=== PATIENT | male | born 1930 | race Caucasian/White ===

== ENCOUNTER 2018-12-23 10:07 | Inpatient (IN) | payer MEDICARE, MEDICAID ==
[~2018-12-23] VITALS: Ht 175.3 cm; Wt 60.5 kg
[~2018-12-23 10:07] MED LIST: LEVE500T19 PO; VALS320T2 PO
[2018-12-23] MEDS ORDERED: DEXTROSE 50% WATER 50ML SYRINGE IV ONE ×2 (10:19→10:30)
[2018-12-23 11:08] LABS: HEMATOCRIT. 41.8 % (42.0-52.0); HEMOGLOBIN. 13.6 g/dL (14.0-18.0); MEAN CORPUSCULAR HEMOGLOBIN 28.4 pg (28.0-32.0); MEAN CORPUSCULAR VOLUME 87.6 fL (80.0-94.0); MEAN PLATELET VOLUME 10.2 fl (7.4-10.4); PLATELET 212 x1000/uL (130-400); RED BLOOD CELL COUNT 4.78 mill/uL (4.7-6.1); RED CELL DISTRIBUTION WIDTH 18.2 % (11.6-14.6)
[2018-12-23 11:16] LABS: CHLORIDE 94 mEq/L (98-107)
[2018-12-23 11:17] LABS: INR 1.1; PROTHROMBIN TIME 10.9 sec (9.6-11.0)
[2018-12-23 11:36] LABS: PLATELET ESTIMATE NORMAL
[2018-12-23 13:03] LABS: CLARITY URINE CLEAR (CLEAR); COLOR URINE YELLOW (YELLOW); KETONES URINE NEGATIVE (NEGATIVE); LEUKOCYTE ESTERASE URINE NEGATIVE (NEGATIVE); NITRITE URINE NEGATIVE (NEGATIVE); OCCULT BLOOD URINE NEGATIVE (NEGATIVE); PH URINE 5.5 (4.5-8.0); PROTEIN URINE 2+ (NEGATIVE); SPECIFIC GRAVITY URINE 1.015 (1.005-1.030)
[2018-12-23] MEDS ORDERED: SODIUM CHLORIDE 0.9% 1,000 ML IV ONE (14:00)
[2018-12-23] MEDS ORDERED: DEXT 5%/0.9% NACL 1,000 ML IV SCH (16:15)
[2018-12-23 16:41] VITALS: BP 164/60
[2018-12-23] MEDS ORDERED: DEXTROSE 50% WATER 50ML SYRINGE IV PRN (17:15)
[2018-12-23 17:30] VITALS: BP 164/60
[2018-12-23] MEDS: BLOOD SUGAR DIAGNOSTIC STRIP TEST SCH ×2 (18:07→20:01)
[2018-12-23] MEDS ORDERED: INFLUENZA VIRUS VACCINE(AFLURIA) 0.5ML SYR IM ONE (18:15)
[2018-12-23] MEDS ORDERED: PNEUMOCOCCAL 23-VAL P-SAC VAC 0.5 ML IM ONE (18:15)
[2018-12-23] MEDS ORDERED: IPRATROPIUM/ALBUTEROL 0.5-3(2.5)MG/3ML NEB HHN PRN (19:15)
[2018-12-23] MEDS ORDERED: ONDANSETRON HCL 4MG/2ML INJ IV PRN (19:15)
[2018-12-23] MEDS ORDERED: MAGNESIUM/ALUMINUM HYDROXIDE/SIMETHICONE 30ML UDC PO PRN (19:15)
[2018-12-23] MEDS ORDERED: DIPHENHYDRAMINE 50MG/ML VIAL IV PRN (19:15)
[2018-12-23] MEDS ORDERED: CLONIDINE 0.1MG TABLET PO PRN (19:15)
[2018-12-23] MEDS ORDERED: NA PHOS,M-B/NA PHOS,DI-BA ENEMA 118ML PR PRN (19:15)
[2018-12-23] MEDS ORDERED: DOCUSATE SODIUM 100MG CAPSULE PO PRN (19:15)
[2018-12-23] MEDS ORDERED: ACETAMINOPHEN 650MG SUPP PR PRN (19:15)
[2018-12-23] MEDS ORDERED: ACETAMINOPHEN 325MG TABLET PO PRN (19:15)
[2018-12-23] MEDS ORDERED: MEDICATION NOT ON FORMULARY EA (Valsartan (Diovan) 1 TAB) PO SCH (19:15)
[2018-12-23] MEDS ORDERED: ACETAMINOPHEN 650MG/20.3ML UDC GT PRN (19:15)
[2018-12-23] MEDS ORDERED: GUAIFENESIN 200MG/10ML SUGAR FREE UDC PO PRN (19:15)
[2018-12-23 20:00] VITALS: BP 141/82
[2018-12-23] MEDS ORDERED: ENOXAPARIN 40MG/0.4ML SYR SUBCUT SCH (20:00)
[2018-12-23] MEDS: LOSARTAN POTASSIUM 100 MG TABLET PO SCH (20:50)
[2018-12-23] MEDS ORDERED: LEVETIRACETAM 250MG TABLET PO SCH (21:00)
[2018-12-23] MEDS: SODIUM CHLORIDE 0.9% INJ 3ML FLUSH IVF SCH (22:00)
[2018-12-23] MEDS ORDERED: LORAZEPAM 2MG/ML CPJ IV PRN (22:45)
[2018-12-23] MEDS: LORAZEPAM 2MG/ML CPJ IV PRN (23:21)
[2018-12-23 23:26] LABS: *AMPHETAMINES SCREEN URINE NEGATIVE (NEGATIVE); *BARBITURATES SCREEN URINE NEGATIVE (NEGATIVE); *BENZODIAZEPINES SCREEN URINE NEGATIVE (NEGATIVE); *COCAINE SCREEN URINE NEGATIVE (NEGATIVE); METHADONE URINE SCREEN NEGATIVE (NEGATIVE)
[2018-12-23 23:27] LABS: CANNABINOID URINE SCREEN NEGATIVE (NEGATIVE); OPIATES URINE SCREEN NEGATIVE (NEGATIVE); PHENCYCLIDINE URINE SCREEN NEGATIVE (NEGATIVE)
[2018-12-23] MEDS ORDERED: LEVETIRACETAM 500 MG in SODIUM CHLORIDE 0.9% 100 ML IV SCH (23:30)
[2018-12-23 23:45] VITALS: BP 178/72
[2018-12-24] VITALS (75 sets, daily range): BP systolic 69–207; BP diastolic 28–111
[2018-12-24] MEDS: DEXTROSE 50% WATER 50ML SYRINGE IV PRN ×2 (04:40→13:43)
[2018-12-24] MEDS: LORAZEPAM 2MG/ML CPJ IV PRN (06:11)
[2018-12-24] MEDS ORDERED: LORAZEPAM 2MG/ML CPJ IV ONE (06:15)
[2018-12-24] MEDS ORDERED: DEXT 10% WATER 1,000 ML IV SCH (06:30)
[2018-12-24 07:15] LABS: HEMATOCRIT. 39.4 % (42.0-52.0); HEMOGLOBIN. 12.8 g/dL (14.0-18.0); MEAN CORPUSCULAR HEMOGLOBIN 28.5 pg (28.0-32.0); MEAN CORPUSCULAR VOLUME 87.6 fL (80.0-94.0); PLATELET 133 x1000/uL (130-400); RED CELL DISTRIBUTION WIDTH 18.6 % (11.6-14.6)
[2018-12-24 07:31] LABS: BG BASE EXCESS -2.3 mmol/L (-2.0-2.0); BG CARBOXYHEMOGLOBIN 0.7 % (0.5-1.5); BG DEOXYHEMOGLOBIN 2.6 % (0.0-5.0); BG HCO3 ACT 24.8 mmol/L (22.0-26.0); BG METHEMOGLOBIN 0.7 % (0.0-1.5); BG OXYGEN SATURATION 97.4 % (92.0-98.5); BG PCO2 52.5 mmHg (35.0-45.0); BG PH 7.293 (7.350-7.450); BG PO2 105.7 mmHg (75.0-100.0); BG SAMPLE SITE RIGHT RADIAL; BG TOTAL HEMOGLOBIN 13.5 g/dL (12.0-18.0); BG VENT MODE MASK - SIMPLE
[2018-12-24] MEDS: BLOOD SUGAR DIAGNOSTIC STRIP TEST SCH ×4 (07:58→21:00)
[2018-12-24] MEDS ORDERED: PROPOFOL 10MG/ML 100ML 100 ML IV PRN (08:15)
[2018-12-24 08:31] LABS: CHLORIDE 101 mEq/L (98-107)
[2018-12-24 08:38] LABS: BG BASE EXCESS -0.8 mmol/L (-2.0-2.0); BG CARBOXYHEMOGLOBIN 0.4 % (0.5-1.5); BG DEOXYHEMOGLOBIN 0.3 % (0.0-5.0); BG HCO3 ACT 24.4 mmol/L (22.0-26.0); BG METHEMOGLOBIN 0.6 % (0.0-1.5); BG OXYGEN SATURATION 99.7 % (92.0-98.5); BG OXYHEMOGLOBIN 98.7 % (94.0-97.0); BG PCO2 42.2 mmHg (35.0-45.0); BG PO2 495.4 mmHg (75.0-100.0); BG SAMPLE SITE RIGHT RADIAL; BG TIDAL VOLUME(mL) 450 mL; BG TOTAL HEMOGLOBIN 13.8 g/dL (12.0-18.0); BG VENT MODE VENT - A/C; BG VENT RATE 12 set
[2018-12-24 08:40] LABS: PHOSPHORUS 2.7 mg/dL (2.5-4.9)
[2018-12-24 08:41] LABS: LDL CHOLESTEROL 199 mg/dL (5-100)
[2018-12-24 08:43] LABS: HDL CHOLESTEROL 34 mg/dL (40-59)
[2018-12-24] MEDS: LEVETIRACETAM 250 MG in SODIUM CHLORIDE 0.9% 100 ML IV SCH ×2 (09:48→21:15)
[2018-12-24] MEDS: LOSARTAN POTASSIUM 100 MG TABLET PO SCH (09:48)
[2018-12-24] MEDS: DEXT 10% WATER 1,000 ML IV SCH ×2 (10:00→19:50)
[2018-12-24 10:01] LABS: PLATELET ESTIMATE NORMAL
[2018-12-24] MEDS ORDERED: PHENYTOIN SODIUM 500 MG in SODIUM CHLORIDE 0.9% 50 ML IV NR (10:30)
[2018-12-24 10:54] LABS: CREATINE KINASE 22 IU/L (39-308)
[2018-12-24] MEDS: MIDAZOLAM HCL 50 MG in DEXTROSE 5% WATER 40 ML IV PRN ×2 (11:39→22:54)
[2018-12-24] MEDS: CEFEPIME 500 MG in DEXTROSE 5% WATER 50 ML IV SCH (11:44)
[2018-12-24] MEDS ORDERED: ALBUTEROL (0.083%) 2.5MG/3ML NEB HHN SCH (12:00)
[2018-12-24] MEDS: METRONIDAZOLE 500 MG PREMIX 100 ML IV SCH ×2 (12:03→19:35)
[2018-12-24] MEDS ORDERED: NOREPINEPHRINE BITARTRATE 1MG/ML 4ML IV ONE (13:50)
[2018-12-24] MEDS: NOREPINEPHRINE 8 MG in DEXT 5% WATER 242 ML IV PRN (14:00)
[2018-12-24] MEDS ORDERED: ALBUMIN HUMAN 25GM/100ML (25%) IV NR (14:00)
[2018-12-24] MEDS ORDERED: FOLIC ACID 1 MG, THIAMINE HCL 100 MG, MVI, ADULT NO.1 10 ML in DEXTROSE 5% WATER 1,000 ML IV SCH ×4 (14:00)
[2018-12-24] MEDS ORDERED: LIDOCAINE HCL 1% 20ML VIAL (Pyxis) INJ ONE (14:12)
[2018-12-24] MEDS ORDERED: SODIUM BICARBONATE 4% (2.4MEQ) 5ML VIAL IV ONE (14:12)
[2018-12-24] MEDS: IPRATROPIUM/ALBUTEROL 0.5-3(2.5)MG/3ML NEB HHN SCH ×2 (14:13→20:50)
[2018-12-24 17:14] LABS: HEMATOCRIT. 35.5 % (42.0-52.0); HEMOGLOBIN. 11.1 g/dL (14.0-18.0); MEAN CORPUSCULAR HEMOGLOBIN 27.5 pg (28.0-32.0); MEAN CORPUSCULAR VOLUME 88.3 fL (80.0-94.0); MEAN PLATELET VOLUME 11.2 fl (7.4-10.4); PLATELET 167 x1000/uL (130-400); RED BLOOD CELL COUNT 4.02 mill/uL (4.7-6.1); RED CELL DISTRIBUTION WIDTH 18.8 % (11.6-14.6)
[2018-12-24 19:51] LABS: PLATELET ESTIMATE NORMAL
[2018-12-24] MEDS ORDERED: PHENYTOIN SODIUM 300 MG in SODIUM CHLORIDE 0.9% 50 ML IV SCH (21:00)
[2018-12-24] MEDS: PHENYTOIN 100 MG/4 ML UDC NG SCH (21:15)
[2018-12-24] MEDS: TAMSULOSIN HCL 0.4MG SR CAPSULE PO SCH (23:58)
[2018-12-25] VITALS (84 sets, daily range): BP systolic 83–132; BP diastolic 35–86
[2018-12-25] MEDS: IPRATROPIUM/ALBUTEROL 0.5-3(2.5)MG/3ML NEB HHN SCH ×4 (02:01→19:53)
[2018-12-25] MEDS: METRONIDAZOLE 500 MG PREMIX 100 ML IV SCH ×3 (05:48→20:08)
[2018-12-25 05:55] LABS: HEMATOCRIT. 36.4 % (42.0-52.0); HEMOGLOBIN. 11.9 g/dL (14.0-18.0); MEAN CORPUSCULAR HEMOGLOBIN 28.4 pg (28.0-32.0); MEAN PLATELET VOLUME 9.2 fl (7.4-10.4); PLATELET 107 x1000/uL (130-400); RED BLOOD CELL COUNT 4.18 mill/uL (4.7-6.1); RED CELL DISTRIBUTION WIDTH 18.5 % (11.6-14.6)
[2018-12-25 06:18] LABS: PHOSPHORUS 2.2 mg/dL (2.5-4.9)
[2018-12-25] MEDS: DEXT 10% WATER 1,000 ML IV SCH (06:34)
[2018-12-25] MEDS: PHENYTOIN 100 MG/4 ML UDC NG SCH ×3 (07:46→21:41)
[2018-12-25] MEDS: BLOOD SUGAR DIAGNOSTIC STRIP TEST SCH ×4 (07:48→21:00)
[2018-12-25 08:10] LABS: PLATELET ESTIMATE DECREASED
[2018-12-25 08:34] LABS: BG BASE EXCESS -2.7 mmol/L (-2.0-2.0); BG CARBOXYHEMOGLOBIN 0.5 % (0.5-1.5); BG DEOXYHEMOGLOBIN 0.7 % (0.0-5.0); BG FRACTION INSPIRED OXYGEN 50; BG HCO3 ACT 21.5 mmol/L (22.0-26.0); BG METHEMOGLOBIN 0.4 % (0.0-1.5); BG OXYGEN SATURATION 99.3 % (92.0-98.5); BG OXYHEMOGLOBIN 98.4 % (94.0-97.0); BG PCO2 35.4 mmHg (35.0-45.0); BG PH 7.402 (7.350-7.450); BG PO2 160.6 mmHg (75.0-100.0); BG SAMPLE SITE RIGHT BRACHIAL; BG TIDAL VOLUME(mL) 450 mL; BG TOTAL HEMOGLOBIN 12.5 g/dL (12.0-18.0); BG VENT MODE VENT - A/C; BG VENT RATE 12 set
[2018-12-25] MEDS: LOSARTAN POTASSIUM 100 MG TABLET PO SCH (09:04)
[2018-12-25] MEDS: LEVETIRACETAM 250 MG in SODIUM CHLORIDE 0.9% 100 ML IV SCH ×2 (09:04→21:00)
[2018-12-25] MEDS: CEFEPIME 500 MG in DEXTROSE 5% WATER 50 ML IV SCH (09:53)
[2018-12-25] MEDS: NOREPINEPHRINE 8 MG in DEXT 5% WATER 242 ML IV PRN (11:48)
[2018-12-25] MEDS ORDERED: DEXT 10%/0.9% NACL 1,000 ML IV SCH (12:45)
[2018-12-25] MEDS: SODIUM CHLORIDE 23.4% 154 MEQ in DEXT 10% WATER 1,000 ML IV SCH (15:51)
[2018-12-25] MEDS ORDERED: POTASSIUM PHOS,M-BASIC-D-BASIC 20 MMOL in DEXTROSE 5% WATER 250 ML IV NR (16:00)
[2018-12-25] MEDS ORDERED: MAGNESIUM 2 G PREMIX 50 ML IV NR (16:00)
[2018-12-25] MEDS: TAMSULOSIN HCL 0.4MG SR CAPSULE PO SCH (21:41)
[2018-12-25 23:45] LABS: CLARITY URINE TURBID (CLEAR); COLOR URINE ORANGE (YELLOW); KETONES URINE NEGATIVE (NEGATIVE); LEUKOCYTE ESTERASE URINE 1+ (NEGATIVE); NITRITE URINE NEGATIVE (NEGATIVE); OCCULT BLOOD URINE 3+ (NEGATIVE); PROTEIN URINE 2+ (NEGATIVE); SPECIFIC GRAVITY URINE 1.013 (1.005-1.030); UROBILINOGEN URINE 0.2 E.U./dL (0.2-1.0)
[2018-12-26] VITALS (83 sets, daily range): BP systolic 89–134; BP diastolic 36–65
[2018-12-26 00:54] LABS: SODIUM URINE RANDOM 18 mEq/L
[2018-12-26] MEDS: IPRATROPIUM/ALBUTEROL 0.5-3(2.5)MG/3ML NEB HHN SCH ×4 (01:58→20:51)
[2018-12-26] MEDS: MIDAZOLAM HCL 50 MG in DEXTROSE 5% WATER 40 ML IV PRN (02:47)
[2018-12-26] MEDS: METRONIDAZOLE 500 MG PREMIX 100 ML IV SCH ×3 (04:00→21:16)
[2018-12-26] MEDS: PHENYTOIN 100 MG/4 ML UDC NG SCH ×3 (05:31→21:17)
[2018-12-26] MEDS: SODIUM CHLORIDE 23.4% 154 MEQ in DEXT 10% WATER 1,000 ML IV SCH (05:31)
[2018-12-26 07:10] LABS: PHOSPHORUS 2.6 mg/dL (2.5-4.9)
[2018-12-26 07:16] LABS: HEMOGLOBIN. 11.5 g/dL (14.0-18.0); MEAN CORPUSCULAR HEMOGLOBIN 28.2 pg (28.0-32.0); MEAN CORPUSCULAR VOLUME 86.1 fL (80.0-94.0); MEAN PLATELET VOLUME 10.1 fl (7.4-10.4); PLATELET 99 x1000/uL (130-400); RED BLOOD CELL COUNT 4.06 mill/uL (4.7-6.1); RED CELL DISTRIBUTION WIDTH 18.4 % (11.6-14.6)
[2018-12-26] MEDS: BLOOD SUGAR DIAGNOSTIC STRIP TEST SCH ×3 (07:32→17:44)
[2018-12-26 08:43] LABS: BG BASE EXCESS -6.9 mmol/L (-2.0-2.0); BG CARBOXYHEMOGLOBIN 0.5 % (0.5-1.5); BG DEOXYHEMOGLOBIN 3.4 % (0.0-5.0); BG FRACTION INSPIRED OXYGEN 30; BG HCO3 ACT 17.3 mmol/L (22.0-26.0); BG METHEMOGLOBIN 0.2 % (0.0-1.5); BG OXYGEN SATURATION 96.6 % (92.0-98.5); BG OXYHEMOGLOBIN 95.9 % (94.0-97.0); BG PCO2 30.9 mmHg (35.0-45.0); BG PH 7.366 (7.350-7.450); BG PO2 86.9 mmHg (75.0-100.0); BG SAMPLE SITE RIGHT BRACHIAL; BG TIDAL VOLUME(mL) 450 mL; BG TOTAL HEMOGLOBIN 12.6 g/dL (12.0-18.0); BG VENT MODE VENT - A/C; BG VENT RATE 12 set
[2018-12-26 08:52] LABS: PLATELET ESTIMATE DECREASED
[2018-12-26] MEDS: LEVETIRACETAM 250 MG in SODIUM CHLORIDE 0.9% 100 ML IV SCH (08:55)
[2018-12-26] MEDS: LOSARTAN POTASSIUM 100 MG TABLET PO SCH (08:55)
[2018-12-26] MEDS: DEXT 5%/0.9% NACL 1,000 ML IV SCH ×2 (08:56→21:17)
[2018-12-26] MEDS: CEFEPIME 500 MG in DEXTROSE 5% WATER 50 ML IV SCH (10:18)
[2018-12-26] MEDS ORDERED: BLOOD SUGAR DIAGNOSTIC STRIP TEST SCH (20:00)
[2018-12-26] MEDS: LEVETIRACETAM 1,000 MG in SODIUM CHLORIDE 0.9% 100 ML IV SCH (21:16)
[2018-12-26] MEDS: TAMSULOSIN HCL 0.4MG SR CAPSULE PO SCH (21:17)
[2018-12-26 22:36] LABS: T4 FREE 1.36 ng/dL (0.76-1.46)
[2018-12-27] VITALS (39 sets, daily range): BP systolic 91–123; BP diastolic 37–90
[2018-12-27] MEDS: IPRATROPIUM/ALBUTEROL 0.5-3(2.5)MG/3ML NEB HHN SCH ×4 (02:28→20:27)
[2018-12-27] MEDS: METRONIDAZOLE 500 MG PREMIX 100 ML IV SCH ×3 (03:25→20:36)
[2018-12-27] MEDS: MIDAZOLAM HCL 50 MG in DEXTROSE 5% WATER 40 ML IV PRN (05:23)
[2018-12-27] MEDS: PHENYTOIN 100 MG/4 ML UDC NG SCH ×3 (05:23→21:49)
[2018-12-27 05:49] LABS: HEMATOCRIT. 34.9 % (42.0-52.0); HEMOGLOBIN. 11.3 g/dL (14.0-18.0); MEAN CORPUSCULAR HEMOGLOBIN 27.9 pg (28.0-32.0); RED BLOOD CELL COUNT 4.06 mill/uL (4.7-6.1); RED CELL DISTRIBUTION WIDTH 18.6 % (11.6-14.6)
[2018-12-27 06:01] LABS: CHLORIDE 101 mEq/L (98-107)
[2018-12-27 06:14] LABS: PHOSPHORUS 2.5 mg/dL (2.5-4.9)
[2018-12-27 08:07] LABS: PLATELET ESTIMATE SLIGHTLY DECREASED
[2018-12-27 08:09] LABS: MEAN PLATELET VOLUME 10.4 fl (7.4-10.4); PLATELET 108 x1000/uL (130-400)
[2018-12-27] MEDS: LEVETIRACETAM 1,000 MG in SODIUM CHLORIDE 0.9% 100 ML IV SCH ×2 (08:34→21:48)
[2018-12-27] MEDS: LOSARTAN POTASSIUM 100 MG TABLET PO SCH (08:34)
[2018-12-27 09:08] LABS: BG BASE EXCESS -4.2 mmol/L (-2.0-2.0); BG CARBOXYHEMOGLOBIN 0.5 % (0.5-1.5); BG DEOXYHEMOGLOBIN 3.1 % (0.0-5.0); BG FRACTION INSPIRED OXYGEN 30; BG HCO3 ACT 20.5 mmol/L (22.0-26.0); BG METHEMOGLOBIN 0.3 % (0.0-1.5); BG OXYGEN SATURATION 96.9 % (92.0-98.5); BG OXYHEMOGLOBIN 96.1 % (94.0-97.0); BG PCO2 36.5 mmHg (35.0-45.0); BG PH 7.368 (7.350-7.450); BG SAMPLE SITE LEFT RADIAL; BG TIDAL VOLUME(mL) 450 mL; BG TOTAL HEMOGLOBIN 12.7 g/dL (12.0-18.0); BG VENT MODE VENT - A/C; BG VENT RATE 12 set
[2018-12-27] MEDS ORDERED: LORAZEPAM 2MG/ML CPJ IV PRN (10:30)
[2018-12-27] MEDS ORDERED: MORPHINE SULFATE 2 MG/ML CPJ (NOT FOR IM USE) IV PRN (10:30)
[2018-12-27] MEDS: CEFEPIME 500 MG in DEXTROSE 5% WATER 50 ML IV SCH (10:38)
[2018-12-27] MEDS: PANTOPRAZOLE SODIUM 40 MG/VIAL IV SCH (11:44)
[2018-12-27] MEDS ORDERED: PHENYTOIN SODIUM 800 MG in SODIUM CHLORIDE 0.9% 100 ML IV NR (14:00)
[2018-12-27] MEDS ORDERED: DEXTROSE 50% WATER 50ML SYRINGE IV PRN (20:30)
[2018-12-27] MEDS: SODIUM CHLORIDE 0.9% INJ 3ML FLUSH IVF SCH (20:35)
[2018-12-27] MEDS: TAMSULOSIN HCL 0.4MG SR CAPSULE PO SCH (20:36)
[2018-12-28] VITALS (34 sets, daily range): BP systolic 100–137; BP diastolic 37–61
[2018-12-28] MEDS: BLOOD SUGAR DIAGNOSTIC STRIP TEST SCH ×4 (00:09→17:04)
[2018-12-28] MEDS: IPRATROPIUM/ALBUTEROL 0.5-3(2.5)MG/3ML NEB HHN SCH ×4 (02:26→20:22)
[2018-12-28] MEDS: METRONIDAZOLE 500 MG PREMIX 100 ML IV SCH ×3 (04:03→20:08)
[2018-12-28 05:30] LABS: HEMATOCRIT. 35.5 % (42.0-52.0); HEMOGLOBIN. 11.6 g/dL (14.0-18.0); MEAN CORPUSCULAR HEMOGLOBIN 28.1 pg (28.0-32.0); MEAN CORPUSCULAR VOLUME 85.9 fL (80.0-94.0); RED BLOOD CELL COUNT 4.13 mill/uL (4.7-6.1); RED CELL DISTRIBUTION WIDTH 18.5 % (11.6-14.6)
[2018-12-28 05:43] LABS: PHOSPHORUS 3.3 mg/dL (2.5-4.9)
[2018-12-28] MEDS: SODIUM CHLORIDE 0.9% INJ 3ML FLUSH IVF SCH ×3 (06:27→22:00)
[2018-12-28] MEDS: PHENYTOIN 100 MG/4 ML UDC NG SCH ×3 (06:37→22:02)
[2018-12-28] MEDS: CITRIC ACID/SODIUM CITRATE SOLN 15ML UDC NG SCH ×3 (08:28→17:59)
[2018-12-28] MEDS: LOSARTAN POTASSIUM 100 MG TABLET PO SCH (08:28)
[2018-12-28] MEDS: PANTOPRAZOLE SODIUM 40 MG/VIAL IV SCH (08:28)
[2018-12-28] MEDS: LEVETIRACETAM 1,000 MG in SODIUM CHLORIDE 0.9% 100 ML IV SCH ×2 (08:28→21:07)
[2018-12-28 09:22] LABS: PLATELET ESTIMATE NORMAL
[2018-12-28 09:23] LABS: MEAN PLATELET VOLUME 11.1 fl (7.4-10.4); PLATELET 145 x1000/uL (130-400)
[2018-12-28] MEDS: CEFEPIME 500 MG in DEXTROSE 5% WATER 50 ML IV SCH (10:33)
[2018-12-28 10:51] LABS: BG BASE EXCESS -6.4 mmol/L (-2.0-2.0); BG CARBOXYHEMOGLOBIN 0.6 % (0.5-1.5); BG DEOXYHEMOGLOBIN 3.3 % (0.0-5.0); BG FRACTION INSPIRED OXYGEN 30; BG HCO3 ACT 18.3 mmol/L (22.0-26.0); BG METHEMOGLOBIN 0.3 % (0.0-1.5); BG OXYGEN SATURATION 96.7 % (92.0-98.5); BG OXYHEMOGLOBIN 95.8 % (94.0-97.0); BG PCO2 33.8 mmHg (35.0-45.0); BG PH 7.351 (7.350-7.450); BG PO2 88.4 mmHg (75.0-100.0); BG SAMPLE SITE RIGHT RADIAL; BG TOTAL HEMOGLOBIN 13.1 g/dL (12.0-18.0)
[2018-12-28 11:04] LABS: BG PRESSURE SUPPORT PS 8; BG VENT MODE VENT/CPAP
[2018-12-28 11:05] LABS: BG TOTAL RESPIRATORY RATE 20 b/min
[2018-12-28 11:15] LABS: SODIUM URINE RANDOM < 5 mEq/L
[2018-12-28] MEDS: TAMSULOSIN HCL 0.4MG SR CAPSULE PO SCH (21:07)
[2018-12-29] VITALS (44 sets, daily range): BP systolic 111–139; BP diastolic 42–70
[2018-12-29] MEDS: BLOOD SUGAR DIAGNOSTIC STRIP TEST SCH ×4 (00:10→18:00)
[2018-12-29] MEDS: IPRATROPIUM/ALBUTEROL 0.5-3(2.5)MG/3ML NEB HHN SCH ×4 (01:54→20:02)
[2018-12-29] MEDS: METRONIDAZOLE 500 MG PREMIX 100 ML IV SCH ×3 (03:27→19:35)
[2018-12-29] MEDS: SODIUM CHLORIDE 0.9% INJ 3ML FLUSH IVF SCH ×3 (06:35→21:02)
[2018-12-29] MEDS: PHENYTOIN 100 MG/4 ML UDC NG SCH ×3 (06:38→21:05)
[2018-12-29 07:18] LABS: HEMATOCRIT. 36.3 % (42.0-52.0); HEMOGLOBIN. 11.7 g/dL (14.0-18.0); MEAN CORPUSCULAR HEMOGLOBIN 27.9 pg (28.0-32.0); MEAN CORPUSCULAR VOLUME 86.7 fL (80.0-94.0); MEAN PLATELET VOLUME 10.8 fl (7.4-10.4); PLATELET 175 x1000/uL (130-400); RED BLOOD CELL COUNT 4.19 mill/uL (4.7-6.1); RED CELL DISTRIBUTION WIDTH 18.7 % (11.6-14.6)
[2018-12-29 07:25] LABS: PHOSPHORUS 2.9 mg/dL (2.5-4.9)
[2018-12-29 08:14] LABS: PLATELET ESTIMATE NORMAL
[2018-12-29] MEDS: LEVETIRACETAM 1,000 MG in SODIUM CHLORIDE 0.9% 100 ML IV SCH ×2 (08:59→20:54)
[2018-12-29] MEDS: CLOPIDOGREL 75MG TABLET PO SCH (09:00)
[2018-12-29] MEDS: CITRIC ACID/SODIUM CITRATE SOLN 15ML UDC NG SCH ×3 (09:00→19:03)
[2018-12-29] MEDS: LOSARTAN POTASSIUM 100 MG TABLET PO SCH (09:00)
[2018-12-29] MEDS: CEFEPIME 500 MG in DEXTROSE 5% WATER 50 ML IV SCH (09:49)
[2018-12-29] MEDS: TAMSULOSIN HCL 0.4MG SR CAPSULE PO SCH (21:04)
[2018-12-30] VITALS (49 sets, daily range): BP systolic 109–159; BP diastolic 40–100
[2018-12-30] MEDS: BLOOD SUGAR DIAGNOSTIC STRIP TEST SCH ×5 (00:05→23:35)
[2018-12-30] MEDS: IPRATROPIUM/ALBUTEROL 0.5-3(2.5)MG/3ML NEB HHN SCH ×4 (01:46→20:05)
[2018-12-30] MEDS: METRONIDAZOLE 500 MG PREMIX 100 ML IV SCH ×3 (03:25→20:31)
[2018-12-30 05:32] LABS: HEMATOCRIT. 37.1 % (42.0-52.0); HEMOGLOBIN. 12.2 g/dL (14.0-18.0); MEAN CORPUSCULAR HEMOGLOBIN 28.4 pg (28.0-32.0); MEAN CORPUSCULAR VOLUME 86.9 fL (80.0-94.0); RED BLOOD CELL COUNT 4.27 mill/uL (4.7-6.1); RED CELL DISTRIBUTION WIDTH 18.8 % (11.6-14.6)
[2018-12-30 05:43] LABS: PHOSPHORUS 2.5 mg/dL (2.5-4.9)
[2018-12-30] MEDS: SODIUM CHLORIDE 0.9% INJ 3ML FLUSH IVF SCH ×3 (05:49→21:17)
[2018-12-30] MEDS: PHENYTOIN 100 MG/4 ML UDC NG SCH ×3 (06:23→21:42)
[2018-12-30] MEDS: LEVETIRACETAM 1,000 MG in SODIUM CHLORIDE 0.9% 100 ML IV SCH ×2 (09:06→21:42)
[2018-12-30] MEDS: LOSARTAN POTASSIUM 100 MG TABLET PO SCH (09:06)
[2018-12-30] MEDS: CLOPIDOGREL 75MG TABLET PO SCH (09:06)
[2018-12-30] MEDS: CITRIC ACID/SODIUM CITRATE SOLN 15ML UDC NG SCH ×3 (09:06→17:00)
[2018-12-30] MEDS: CEFEPIME 500 MG in DEXTROSE 5% WATER 50 ML IV SCH (11:08)
[2018-12-30 14:21] LABS: PLATELET ESTIMATE NORMAL
[2018-12-30 14:22] LABS: PLATELET 220 x1000/uL (130-400)
[2018-12-30] MEDS: METOCLOPRAMIDE HCL 10MG/2ML VIAL IV SCH ×3 (14:30→23:47)
[2018-12-30] MEDS: PANTOPRAZOLE SODIUM 40 MG/VIAL IV SCH ×2 (15:02→20:31)
[2018-12-30] MEDS: DEXT 5%/0.9% NACL 1,000 ML IV SCH (15:06)
[2018-12-30 17:35] LABS: HEMATOCRIT 37.4 % (42.0-52.0); HEMOGLOBIN 12.2 g/dL (14.0-18.0); MEAN CORPUSCULAR HEMOGLOBIN 28.2 pg (28.0-32.0); MEAN CORPUSCULAR VOLUME 86.1 fL (80.0-94.0); PLATELET 262 x1000/uL (130-400); RED BLOOD CELL COUNT 4.34 mill/uL (4.7-6.1); RED CELL DISTRIBUTION WIDTH 18.5 % (11.6-14.6)
[2018-12-30] MEDS: TAMSULOSIN HCL 0.4MG SR CAPSULE PO SCH (21:42)
[2018-12-30] MEDS: MEROPENEM 500 MG in SODIUM CHLORIDE 0.9% 50 ML IV SCH (23:47)
[2018-12-31] VITALS (50 sets, daily range): BP systolic 87–133; BP diastolic 31–52
[2018-12-31] MEDS: IPRATROPIUM/ALBUTEROL 0.5-3(2.5)MG/3ML NEB HHN SCH ×4 (01:40→20:41)
[2018-12-31 05:15] LABS: HEMATOCRIT. 34.2 % (42.0-52.0); MEAN CORPUSCULAR HEMOGLOBIN 28.2 pg (28.0-32.0); MEAN CORPUSCULAR VOLUME 87.3 fL (80.0-94.0); RED BLOOD CELL COUNT 3.92 mill/uL (4.7-6.1)
[2018-12-31] MEDS: SODIUM CHLORIDE 0.9% INJ 3ML FLUSH IVF SCH ×3 (05:15→22:19)
[2018-12-31] MEDS: METOCLOPRAMIDE HCL 10MG/2ML VIAL IV SCH ×3 (05:29→17:07)
[2018-12-31] MEDS: BLOOD SUGAR DIAGNOSTIC STRIP TEST SCH ×3 (05:29→17:07)
[2018-12-31] MEDS: PHENYTOIN 100 MG/4 ML UDC NG SCH ×3 (05:29→22:22)
[2018-12-31 05:35] LABS: PHOSPHORUS 2.5 mg/dL (2.5-4.9)
[2018-12-31 07:53] LABS: PLATELET ESTIMATE NORMAL
[2018-12-31 07:54] LABS: MEAN PLATELET VOLUME 10.2 fl (7.4-10.4); PLATELET 255 x1000/uL (130-400)
[2018-12-31] MEDS: PANTOPRAZOLE SODIUM 40 MG/VIAL IV SCH ×2 (08:01→21:30)
[2018-12-31] MEDS: LOSARTAN POTASSIUM 100 MG TABLET PO SCH (08:02)
[2018-12-31] MEDS: CLOPIDOGREL 75MG TABLET PO SCH (08:02)
[2018-12-31] MEDS: CITRIC ACID/SODIUM CITRATE SOLN 15ML UDC NG SCH ×3 (08:02→16:52)
[2018-12-31] MEDS: DEXT 5%/0.9% NACL 1,000 ML IV SCH ×2 (08:04→22:35)
[2018-12-31] MEDS: LEVETIRACETAM 1,000 MG in SODIUM CHLORIDE 0.9% 100 ML IV SCH ×2 (09:45→21:30)
[2018-12-31] MEDS: MEROPENEM 500 MG in SODIUM CHLORIDE 0.9% 50 ML IV SCH (12:02)
[2018-12-31] MEDS ORDERED: DOCUSATE SODIUM SUGAR FREE 100MG/10ML UDC NG PRN (17:00)
[2018-12-31] MEDS ORDERED: LACTULOSE 20G/30ML UDC PO NR (17:15)
[2018-12-31] MEDS: TAMSULOSIN HCL 0.4MG SR CAPSULE PO SCH (21:00)
[2019-01-01] VITALS (47 sets, daily range): BP systolic 101–143; BP diastolic 33–67
[2019-01-01] MEDS: MEROPENEM 500 MG in SODIUM CHLORIDE 0.9% 50 ML IV SCH ×2 (00:18→12:30)
[2019-01-01] MEDS: METOCLOPRAMIDE HCL 10MG/2ML VIAL IV SCH ×4 (00:21→18:48)
[2019-01-01] MEDS: IPRATROPIUM/ALBUTEROL 0.5-3(2.5)MG/3ML NEB HHN SCH ×3 (02:10→20:17)
[2019-01-01] MEDS: PHENYTOIN 100 MG/4 ML UDC NG SCH ×3 (05:40→21:53)
[2019-01-01] MEDS: SODIUM CHLORIDE 0.9% INJ 3ML FLUSH IVF SCH ×3 (05:44→21:22)
[2019-01-01] MEDS: BLOOD SUGAR DIAGNOSTIC STRIP TEST SCH ×4 (06:05→18:48)
[2019-01-01 08:02] LABS: BASOPHILS % 0.4 % (0.0-2.0); EOSINOPHILS % 1.1 % (0.0-5.0); HEMATOCRIT. 33.6 % (42.0-52.0); HEMOGLOBIN. 10.7 g/dL (14.0-18.0); LYMPHOCYTES % 25.3 % (20.0-50.0); MEAN CORPUSCULAR HEMOGLOBIN 28.1 pg (28.0-32.0); MEAN CORPUSCULAR VOLUME 88.3 fL (80.0-94.0); MEAN PLATELET VOLUME 10.3 fl (7.4-10.4); MONOCYTES % 5.4 % (2.0-8.0); NEUTROPHILS % 67.8 % (40.0-76.0); PLATELET 298 x1000/uL (130-400); RED CELL DISTRIBUTION WIDTH 19.4 % (11.6-14.6)
[2019-01-01 08:31] LABS: PHOSPHORUS 3.1 mg/dL (2.5-4.9)
[2019-01-01] MEDS: CITRIC ACID/SODIUM CITRATE SOLN 15ML UDC NG SCH ×3 (09:05→18:48)
[2019-01-01] MEDS: PANTOPRAZOLE SODIUM 40 MG/VIAL IV SCH ×2 (09:05→21:21)
[2019-01-01] MEDS: LEVETIRACETAM 1,000 MG in SODIUM CHLORIDE 0.9% 100 ML IV SCH ×2 (09:05→21:53)
[2019-01-01] MEDS: CLOPIDOGREL 75MG TABLET PO SCH (09:05)
[2019-01-01] MEDS: LINEZOLID 600 MG PREMIX 300 ML IV SCH (14:55)
[2019-01-01] MEDS: TAMSULOSIN HCL 0.4MG SR CAPSULE PO SCH (21:21)
[2019-01-02] VITALS (42 sets, daily range): BP systolic 115–140; BP diastolic 39–96
[2019-01-02] MEDS: BLOOD SUGAR DIAGNOSTIC STRIP TEST SCH ×4 (00:27→18:21)
[2019-01-02] MEDS: METOCLOPRAMIDE HCL 10MG/2ML VIAL IV SCH ×4 (00:31→18:21)
[2019-01-02] MEDS: MEROPENEM 500 MG in SODIUM CHLORIDE 0.9% 50 ML IV SCH ×2 (00:31→12:02)
[2019-01-02] MEDS: LINEZOLID 600 MG PREMIX 300 ML IV SCH ×2 (01:18→12:03)
[2019-01-02] MEDS: IPRATROPIUM/ALBUTEROL 0.5-3(2.5)MG/3ML NEB HHN SCH ×4 (02:13→20:34)
[2019-01-02] MEDS: SODIUM CHLORIDE 0.9% INJ 3ML FLUSH IVF SCH ×2 (05:36→14:41)
[2019-01-02 05:37] LABS: BASOPHILS % 0.8 % (0.0-2.0); EOSINOPHILS % 2.1 % (0.0-5.0); HEMATOCRIT. 34.3 % (42.0-52.0); LYMPHOCYTES % 10.2 % (20.0-50.0); MEAN CORPUSCULAR HEMOGLOBIN 28.5 pg (28.0-32.0); MEAN CORPUSCULAR VOLUME 88.6 fL (80.0-94.0); MONOCYTES % 9.8 % (2.0-8.0); NEUTROPHILS % 77.1 % (40.0-76.0); RED BLOOD CELL COUNT 3.87 mill/uL (4.7-6.1); RED CELL DISTRIBUTION WIDTH 19.5 % (11.6-14.6)
[2019-01-02] MEDS: PHENYTOIN 100 MG/4 ML UDC NG SCH ×3 (05:37→22:00)
[2019-01-02] MEDS: PANTOPRAZOLE SODIUM 40 MG/VIAL IV SCH ×2 (08:13→20:38)
[2019-01-02] MEDS: CLOPIDOGREL 75MG TABLET PO SCH (08:13)
[2019-01-02] MEDS: LEVETIRACETAM 1,000 MG in SODIUM CHLORIDE 0.9% 100 ML IV SCH ×2 (08:13→20:38)
[2019-01-02] MEDS: CITRIC ACID/SODIUM CITRATE SOLN 15ML UDC NG SCH ×3 (08:13→18:21)
[2019-01-02 08:50] LABS: MEAN PLATELET VOLUME 9.8 fl (7.4-10.4); PLATELET 317 x1000/uL (130-400)
[2019-01-02] MEDS ORDERED: FUROSEMIDE 20MG/2ML VIAL IVP NR (10:45)
[2019-01-02] MEDS: TAMSULOSIN HCL 0.4MG SR CAPSULE PO SCH (20:41)
[2019-01-03] VITALS (10 sets, daily range): BP systolic 100–132; BP diastolic 43–57
[2019-01-03] MEDS: IPRATROPIUM/ALBUTEROL 0.5-3(2.5)MG/3ML NEB HHN SCH ×4 (01:01→21:08)
[2019-01-03] MEDS: METOCLOPRAMIDE HCL 10MG/2ML VIAL IV SCH ×4 (02:40→17:40)
[2019-01-03] MEDS: MEROPENEM 500 MG in SODIUM CHLORIDE 0.9% 50 ML IV SCH ×2 (02:40→12:31)
[2019-01-03] MEDS: SODIUM CHLORIDE 0.9% INJ 3ML FLUSH IVF SCH ×4 (02:42→22:00)
[2019-01-03] MEDS: LINEZOLID 600 MG PREMIX 300 ML IV SCH ×2 (03:00→13:34)
[2019-01-03] MEDS: PHENYTOIN 100 MG/4 ML UDC NG SCH ×3 (06:00→23:00)
[2019-01-03 06:35] LABS: BASOPHILS % 0.5 % (0.0-2.0); EOSINOPHILS % 1.5 % (0.0-5.0); HEMATOCRIT. 35.4 % (42.0-52.0); HEMOGLOBIN. 11.5 g/dL (14.0-18.0); LYMPHOCYTES % 20.5 % (20.0-50.0); MEAN CORPUSCULAR HEMOGLOBIN 28.4 pg (28.0-32.0); MEAN CORPUSCULAR VOLUME 87.9 fL (80.0-94.0); MONOCYTES % 6.4 % (2.0-8.0); NEUTROPHILS % 71.1 % (40.0-76.0); RED BLOOD CELL COUNT 4.03 mill/uL (4.7-6.1); RED CELL DISTRIBUTION WIDTH 19.2 % (11.6-14.6)
[2019-01-03] MEDS: BLOOD SUGAR DIAGNOSTIC STRIP TEST SCH ×4 (06:45→17:26)
[2019-01-03 07:26] LABS: PLATELET 319 x1000/uL (130-400)
[2019-01-03] MEDS: CITRIC ACID/SODIUM CITRATE SOLN 15ML UDC NG SCH ×3 (09:00→17:40)
[2019-01-03] MEDS: PANTOPRAZOLE SODIUM 40 MG/VIAL IV SCH ×2 (09:01→22:55)
[2019-01-03] MEDS: LEVETIRACETAM 1,000 MG in SODIUM CHLORIDE 0.9% 100 ML IV SCH ×2 (09:01→23:02)
[2019-01-03 09:04] LABS: BG BASE EXCESS -0.6 mmol/L (-2.0-2.0); BG CARBOXYHEMOGLOBIN 1.2 % (0.5-1.5); BG DEOXYHEMOGLOBIN 4.4 % (0.0-5.0); BG FRACTION INSPIRED OXYGEN 28; BG HCO3 ACT 23.9 mmol/L (22.0-26.0); BG METHEMOGLOBIN 0.3 % (0.0-1.5); BG OXYGEN SATURATION 95.5 % (92.0-98.5); BG OXYHEMOGLOBIN 94.1 % (94.0-97.0); BG PH 7.406 (7.350-7.450); BG PO2 76.2 mmHg (75.0-100.0); BG SAMPLE SITE LEFT RADIAL; BG TOTAL HEMOGLOBIN 12.5 g/dL (12.0-18.0); BG VENT MODE NASAL CANNULA
[2019-01-03] MEDS ORDERED: CEFAZOLIN 1000MG PREMIX 50 ML IV NR (10:00)
[2019-01-03 11:17] LABS: INR 1.4; PARTIAL THROMBOPLASTIN TIME 41.5 sec (23.4-31.0); PROTHROMBIN TIME 14.4 sec (9.6-11.0)
[2019-01-03] MEDS ORDERED: PHYTONADIONE 10MG/ML AMP SUBCUT SCH ×2 (12:30→18:00)
[2019-01-03] MEDS: TAMSULOSIN HCL 0.4MG SR CAPSULE PO SCH ×2 (21:00→22:56)
[2019-01-04] VITALS (86 sets, daily range): BP systolic 1–132; BP diastolic -24–83
[2019-01-04] MEDS: METOCLOPRAMIDE HCL 10MG/2ML VIAL IV SCH ×2 (01:07→05:48)
[2019-01-04] MEDS: MEROPENEM 500 MG in SODIUM CHLORIDE 0.9% 50 ML IV SCH ×2 (01:07→13:15)
[2019-01-04] MEDS: IPRATROPIUM/ALBUTEROL 0.5-3(2.5)MG/3ML NEB HHN SCH ×3 (01:54→13:43)
[2019-01-04] MEDS: LINEZOLID 600 MG PREMIX 300 ML IV SCH ×2 (03:18→14:33)
[2019-01-04] MEDS ORDERED: ALBUTEROL (0.083%) 2.5MG/3ML NEB HHN PRN (04:45)
[2019-01-04] MEDS ORDERED: NOREPINEPHRINE 4 MG in DEXT 5% WATER 246 ML IV PRN (04:45)
[2019-01-04] MEDS ORDERED: DEXT 5%/LACTATED RINGERS 1,000 ML IV SCH (05:00)
[2019-01-04] MEDS: BLOOD SUGAR DIAGNOSTIC STRIP TEST SCH ×4 (05:21→18:27)
[2019-01-04] MEDS: PHENYTOIN 100 MG/4 ML UDC NG SCH (05:48)
[2019-01-04] MEDS ORDERED: PHYTONADIONE 10MG/ML AMP SUBCUT SCH (06:00)
[2019-01-04] MEDS ORDERED: SODIUM CHLORIDE 10% FOR INH 15ML VIAL NEB INH SCH (06:00)
[2019-01-04] MEDS: SODIUM CHLORIDE 0.9% INJ 3ML FLUSH IVF SCH ×2 (06:28→14:02)
[2019-01-04] MEDS: PHENYLEPHRINE 40 MG in DEXT 5% WATER 246 ML IV PRN ×2 (08:25→12:40)
[2019-01-04] MEDS ORDERED: ALBUMIN HUMAN 25GM/100ML (25%) IV SCH ×2 (08:45→10:30)
[2019-01-04 08:55] LABS: BG BASE EXCESS -21.9 mmol/L (-2.0-2.0); BG CARBOXYHEMOGLOBIN 1.3 % (0.5-1.5); BG FRACTION INSPIRED OXYGEN 100; BG HCO3 ACT 11.2 mmol/L (22.0-26.0); BG METHEMOGLOBIN 0.4 % (0.0-1.5); BG OXYGEN SATURATION 81.7 % (92.0-98.5); BG OXYHEMOGLOBIN 80.3 % (94.0-97.0); BG PCO2 58.5 mmHg (35.0-45.0); BG PH 6.898 (7.350-7.450); BG PO2 70.6 mmHg (75.0-100.0); BG SAMPLE SITE RIGHT RADIAL; BG TIDAL VOLUME(mL) 450 mL; BG TOTAL HEMOGLOBIN 12.8 g/dL (12.0-18.0); BG VENT MODE VENT - A/C; BG VENT RATE 16 set
[2019-01-04] MEDS ORDERED: ALBUMIN HUMAN 25GM/100ML (25%) IV ONE (09:00)
[2019-01-04] MEDS ORDERED: SODIUM BICARBONATE 8.4% 1 MEQ/ML 50ML SYR IV SCH ×2 (09:00→10:30)
[2019-01-04] MEDS ORDERED: ALBUMIN HUMAN 25GM/100ML (25%) IV NR ×2 (09:15→13:45)
[2019-01-04 09:44] LABS: CHLORIDE 108 mEq/L (98-107)
[2019-01-04] MEDS ORDERED: VASOPRESSIN 10 UNIT in SODIUM CHLORIDE 0.9% 99.5 ML IV PRN (09:45)
[2019-01-04 09:52] LABS: LDL CHOLESTEROL 92 mg/dL (5-100)
[2019-01-04 09:54] LABS: HDL CHOLESTEROL 15 mg/dL (40-59)
[2019-01-04 09:56] LABS: T4 FREE 1.05 ng/dL (0.76-1.46)
[2019-01-04 10:00] LABS: D-DIMER 34.36 mg/L FEU (<0.50); INR 2.7; PROTHROMBIN TIME 26.8 sec (9.6-11.0)
[2019-01-04 10:09] LABS: PARTIAL THROMBOPLASTIN TIME 78.4 sec (23.4-31.0)
[2019-01-04 10:13] LABS: BG BASE EXCESS -17.3 mmol/L (-2.0-2.0); BG DEOXYHEMOGLOBIN 1.8 % (0.0-5.0); BG FRACTION INSPIRED OXYGEN 100; BG HCO3 ACT 12.4 mmol/L (22.0-26.0); BG METHEMOGLOBIN 0.3 % (0.0-1.5); BG OXYGEN SATURATION 98.2 % (92.0-98.5); BG OXYHEMOGLOBIN 97.9 % (94.0-97.0); BG PCO2 45.6 mmHg (35.0-45.0); BG PH 7.052 (7.350-7.450); BG PO2 162.8 mmHg (75.0-100.0); BG SAMPLE SITE RIGHT RADIAL; BG TIDAL VOLUME(mL) 450 mL; BG TOTAL HEMOGLOBIN 10.4 g/dL (12.0-18.0); BG VENT MODE VENT - A/C; BG VENT RATE 26 set
[2019-01-04 10:17] LABS: PHOSPHORUS 8.6 mg/dL (2.5-4.9)
[2019-01-04] MEDS: VASOPRESSIN 10 UNIT in SODIUM CHLORIDE 0.9% 99.5 ML IV PRN ×2 (10:22→14:53)
[2019-01-04] MEDS ORDERED: NOREPINEPHRINE 32 MG in DEXT 5% WATER 468 ML IV PRN (10:30)
[2019-01-04 11:19] LABS: HEMATOCRIT. 34.3 % (42.0-52.0); HEMOGLOBIN. 10.3 g/dL (14.0-18.0); MEAN CORPUSCULAR HEMOGLOBIN 29.1 pg (28.0-32.0); RED BLOOD CELL COUNT 3.54 mill/uL (4.7-6.1); RED CELL DISTRIBUTION WIDTH 20.5 % (11.6-14.6)
[2019-01-04 11:24] LABS: MEAN CORPUSCULAR VOLUME 96.9 fL (80.0-94.0)
[2019-01-04] MEDS: PANTOPRAZOLE SODIUM 40 MG/VIAL IV SCH (11:28)
[2019-01-04 11:31] LABS: BG BASE EXCESS -21.2 mmol/L (-2.0-2.0); BG CARBOXYHEMOGLOBIN 0.1 % (0.5-1.5); BG DEOXYHEMOGLOBIN 10.1 % (0.0-5.0); BG FRACTION INSPIRED OXYGEN 100; BG HCO3 ACT 10.2 mmol/L (22.0-26.0); BG METHEMOGLOBIN 0.2 % (0.0-1.5); BG OXYGEN SATURATION 89.9 % (92.0-98.5); BG OXYHEMOGLOBIN 89.6 % (94.0-97.0); BG PCO2 48.4 mmHg (35.0-45.0); BG PH 6.943 (7.350-7.450); BG PO2 86.3 mmHg (75.0-100.0); BG SAMPLE SITE LEFT FEMORAL; BG TIDAL VOLUME(mL) 550 mL; BG TOTAL HEMOGLOBIN 10.3 g/dL (12.0-18.0); BG VENT MODE VENT - A/C; BG VENT RATE 28 set
[2019-01-04 11:35] LABS: BG BASE EXCESS -20.9 mmol/L (-2.0-2.0); BG CARBOXYHEMOGLOBIN 0.1 % (0.5-1.5); BG DEOXYHEMOGLOBIN 13.4 % (0.0-5.0); BG FRACTION INSPIRED OXYGEN 100; BG HCO3 ACT 10.8 mmol/L (22.0-26.0); BG METHEMOGLOBIN 0.1 % (0.0-1.5); BG OXYGEN SATURATION 86.6 % (92.0-98.5); BG OXYHEMOGLOBIN 86.4 % (94.0-97.0); BG PCO2 50.5 mmHg (35.0-45.0); BG PH 6.946 (7.350-7.450); BG PO2 76.4 mmHg (75.0-100.0); BG SAMPLE SITE RIGHT FEMORAL; BG TIDAL VOLUME(mL) 550 mL; BG VENT MODE VENT - A/C; BG VENT RATE 28 set
[2019-01-04 11:50] LABS: MEAN PLATELET VOLUME 8.2 fl (7.4-10.4)
[2019-01-04] MEDS ORDERED: SODIUM BICARBONATE 150 MEQ in DEXTROSE 5% WATER 1,000 ML IV SCH (12:00)
[2019-01-04] MEDS ORDERED: SODIUM BICARBONATE 100 MEQ in DEXTROSE 5% WATER 900 ML IV SCH (12:00)
[2019-01-04] MEDS ORDERED: SODIUM POLYSTYRENE SULFONATE 15 G/60 ML BOT NG SCH (12:00)
[2019-01-04] MEDS ORDERED: INSULIN REGULAR (HUMULIN R) 300UNITS/3ML IV NR (12:15)
[2019-01-04] MEDS ORDERED: DEXTROSE 50% WATER 50ML SYRINGE IV NR (12:15)
[2019-01-04 12:16] LABS: NUCLEATED RED BLOOD CELLS 5 /100 WBC
[2019-01-04 12:18] LABS: PLATELET ESTIMATE NORMAL
[2019-01-04 12:20] LABS: BG BASE EXCESS -22.3 mmol/L (-2.0-2.0); BG CARBOXYHEMOGLOBIN 0.3 % (0.5-1.5); BG DEOXYHEMOGLOBIN 2.2 % (0.0-5.0); BG FRACTION INSPIRED OXYGEN 100; BG HCO3 ACT 8.8 mmol/L (22.0-26.0); BG METHEMOGLOBIN 0.3 % (0.0-1.5); BG OXYGEN SATURATION 97.8 % (92.0-98.5); BG OXYHEMOGLOBIN 97.2 % (94.0-97.0); BG PH 6.958 (7.350-7.450); BG PO2 155.6 mmHg (75.0-100.0); BG SAMPLE SITE RIGHT BRACHIAL; BG TIDAL VOLUME(mL) 550 mL; BG TOTAL HEMOGLOBIN 10.5 g/dL (12.0-18.0); BG VENT MODE VENT - A/C
[2019-01-04 12:25] LABS: PLATELET 269 x1000/uL (130-400)
[2019-01-04] MEDS ORDERED: CITRIC ACID/SODIUM CITRATE SOLN 30ML UDC PO SCH (13:00)
[2019-01-04] MEDS: LEVETIRACETAM 1,000 MG in SODIUM CHLORIDE 0.9% 100 ML IV SCH (13:15)
[2019-01-04] MEDS ORDERED: SODIUM BICARBONATE 150 MEQ in DEXTROSE 5% WATER 850 ML IV SCH (14:00)
[2019-01-04 14:58] LABS: CREATINE KINASE MB FRACTION 14.1 ng/mL (0.5-3.6)
[2019-01-04] MEDS ORDERED: PHYTONADIONE 10 MG in DEXTROSE 5% WATER 49 ML IV SCH (15:00)
[2019-01-04] MEDS ORDERED: PHENYTOIN SODIUM 100MG/2ML VIAL IV NR (15:00)
[2019-01-04] MEDS ORDERED: MORPHINE SULFATE 250 MG in DEXT 5% WATER 240 ML IV PRN (17:00)
[2019-01-04 18:10] LABS: PROTHROMBIN TIME 50.7 sec (9.6-11.0)
[2019-01-04 18:29] LABS: INR 5.3
[2019-01-04] MEDS ORDERED: PHYTONADIONE 10 MG in DEXTROSE 5% WATER 49 ML IV NR (20:00)
[2019-01-04] MEDS ORDERED: PHENYTOIN SODIUM 100MG/2ML VIAL IV SCH (22:00)
== END 2019-01-04 20:50 | disposition expired | DRG 870 ==
LOC: ER 10:07 → 8WST 13:52 → ENRESERV 14:17 → CVICU 12-24 06:43 → 3WST 01-02 21:35 → MICUSO 01-04 05:08
PROVIDERS: ADMIT Family Medicine; ATTEND Family Medicine
PROC: 5A1955Z Respiratory Ventilation, Greater than 96 Consecutive Hours (ICD-10-PCS; principal; 2018-12-24)
PROC: 0BH17EZ Insertion of Endotracheal Airway into Trachea, Via Natural or Artificial Opening (ICD-10-PCS; 2018-12-24)
PROC: 02HV33Z Insertion of Infusion Device into Superior Vena Cava, Percutaneous Approach (ICD-10-PCS; 2018-12-27)
PROC: B548ZZA Ultrasonography of Superior Vena Cava, Guidance (ICD-10-PCS; 2018-12-27)
DX: A41.9 Sepsis, unspecified organism (principal); E43 Unspecified severe protein-calorie malnutrition; G93.41 Metabolic encephalopathy; N17.0 Acute kidney failure with tubular necrosis; J96.02 Acute respiratory failure with hypercapnia; J69.0 Pneumonitis due to inhalation of food and vomit; R65.21 Severe sepsis with septic shock; I63.81 Other cerebral infarction due to occlusion or stenosis of small artery; E22.2 Syndrome of inappropriate secretion of antidiuretic hormone; Z68.1 Body mass index [BMI] 19.9 or less, adult; K56.7 Ileus, unspecified; N39.0 Urinary tract infection, site not specified; E16.2 Hypoglycemia, unspecified; D64.9 Anemia, unspecified; E86.1 Hypovolemia; G40.901 Epilepsy, unspecified, not intractable, with status epilepticus; Z87.891 Personal history of nicotine dependence; Z91.14 Patient's other noncompliance with medication regimen; N40.0 Benign prostatic hyperplasia without lower urinary tract symptoms; R62.7 Adult failure to thrive; N18.3 Chronic kidney disease, stage 3 (moderate); Z86.73 Personal history of transient ischemic attack (TIA), and cerebral infarction without residual deficits; Z82.49 Family history of ischemic heart disease and other diseases of the circulatory system; I12.9 Hypertensive chronic kidney disease with stage 1 through stage 4 chronic kidney disease, or unspecified chronic kidney disease; F10.10 Alcohol abuse, uncomplicated; E87.5 Hyperkalemia; R13.10 Dysphagia, unspecified; E80.6 Other disorders of bilirubin metabolism; W18.39XA Other fall on same level, initial encounter; Y93.89 Activity, other specified; Y92.89 Other specified places as the place of occurrence of the external cause; Y99.8 Other external cause status; Z79.02 Long term (current) use of antithrombotics/antiplatelets; Z91.19 Patient's noncompliance with other medical treatment and regimen; I65.23 Occlusion and stenosis of bilateral carotid arteries
CPT/HCPCS: 36415; 36600; 70490; 70551; 71045; 74018; 76700; 76770; 76937; 80048; 80061; 80076; 80185; 80305; 81003; 82105; 82140; 82248; 82375; 82533; 82542; 82550; 82553; 82805; 82962; 83036; 83605; 83735; 83880; 83930; 83935; 84100; 84134; 84145; 84300; 84439; 84443; 84484; 85027; 85379; 87070; 93005; 93306; 93880; 93970; 94002; 94003; 94640; 96374; 97162; 99285; C1725; C9113; J0690; J0692; J1165; J1650; J1940; J1953; J2020; J2060; J2185; J2250; J2370; J2405; J2704; J2765; J3411; J3430; J3475; J3490; J7040; J7042; J7050; J7060; J7070; J7131; J7620; P9047